=== PATIENT | male | born 1985 | race American Indian/Alaskan Native ===

== ENCOUNTER 2016-12-05 08:02 | Emergency (ER) | payer SELFPAY ==
[2016-12-05 08:18] VITALS: BP 123/79
--- NOTE | 2016-12-05 08:19 | EDM.PDOC ---
ED HISTORY OF PRESENT ILLNESS - General Chief Complaint: Respiratory Problem Stated Complaint: TROUBLE BREATHING Time Seen by Provider: 12/05/16 08:18 Source of Information: Reports: Patient, RN, RN notes reviewed History Limitations: Reports: No limitations - History of Present Illness INITIAL COMMENTS - FREE TEXT/NARRATIVE: C/O runny nose, sore throat, sinus congestion and cough x3 to 4 days. Cough began as dry and hacking, but now has some light green sputum that is thick. Reports feeling feverish the first day, but not now. No known sick contacts. Timing/Duration: Reports: Constant Improves with: Reports: None Worsens with: Reports: None Context, General: Denies: Activity, Exercise, Lifting, Sick contact, Trauma Associated Symptoms (General): Reports: no other symptoms - Related Data Allergies/ADRs: Allergies Allergy/AdvReac Type Severity Reaction Status Date / Time venom-honey bee Allergy Hives Verified 12/05/16 08:14 [bee venom (honey bee)] Home Meds: Home Meds . [No Known Home Meds] 05/11/14 [History] Past Medical History - Past Health History Medical/Surgical History: Denies Medical/Surgical History Social & Family History - Family History Family Medical History: Noncontributory - Tobacco Use Smoking Status *Q: Current Every Day Smoker Years of Tobacco use: 8 - Alcohol Use Days Per Week of Alcohol Use: 0 - Recreational Drug Use Recreational Drug Use: No - Living Situation & Occupation Living situation: Reports: with family ED ROS GENERAL - Review of Systems Review Of Systems: ROS reveals no pertinent complaints other than HPI. ED EXAM, GENERAL - Physical Exam Exam: See Below Exam Limited By: No limitations General Appearance: alert, WD/WN, no apparent distress Eye Exam: bilateral eye: normal inspection Ears: normal external exam, normal canal, hearing grossly normal, normal TMs Nose: no blood, nasal drainage (clear and yellow) Throat/Mouth: Normal lips, Normal teeth, Normal gums, Normal voice, No airway compromise, Other (pharyngeal erythema with postnasal drip) Head: atraumatic, normocephalic Neck: normal inspection, supple, non-tender, full range of motion. No: lymphadenopathy (L), lymphadenopathy (R) Respiratory/Chest: no respiratory distress, lungs clear, no accessory muscle use , other (occ. cough). No: rales, rhonchi, wheezing Cardiovascular: regular rate, rhythm GI/Abdominal: normal bowel sounds, soft, non tender, no distention Neurological: alert, oriented, CN II-XII intact, normal cognition, normal gait, no motor/sensory deficits Psychiatric: normal affect, normal mood Skin Exam: Warm, Dry, Intact, Normal color, No rash Course - Vital Signs Last Recorded V/S: Last Vital Signs Temp 36.3 C 12/05/16 08:15 Pulse 80 12/05/16 08:15 Resp 18 12/05/16 08:15 BP 123/79 12/05/16 08:15 Pulse Ox 100 12/05/16 08:15 - Orders/Labs/Meds Meds: Medications Discontinued Medications Generic Name Dose Route Start Last Admin Trade Name Manolo PRN Reason Stop Dose Admin Azithromycin 500 mg 12/05/16 08:38 Zithromax PO 12/05/16 08:39 ONETIME ONE Loratadine 10 mg 12/05/16 08:39 Claritin PO 12/05/16 08:40 ONETIME ONE Departure - Departure Time of Disposition: 08:42 Disposition: Home, Self-Care 01 Condition: good Clinical Impression: Upper respiratory infection with cough and congestion Pharyngitis Qualifiers: Pharyngitis/tonsillitis etiology: unspecified etiology Qualified Code(s): J02.9 - Acute pharyngitis, unspecified Instructions: Upper Respiratory Infection, Adult, [id number], Pharyngitis, [id number] Forms: ED Department Discharge Additional Instructions: Rx: Zithromax 250mg Rx: Loratadine D-24HR Frequent saltwater gargles until improved. Follow up in clinic if not improving in 2 to 3 days.
[2016-12-05] MEDS ORDERED: Azithromycin 250 MG Tab PO ONE (08:38)
[2016-12-05] MEDS ORDERED: Loratadine 10 MG Tab PO ONE (08:39)
== END 2016-12-05 08:53 | disposition home or self-care (01) ==
LOC: DL.ED 08:02
DX: J06.9 Acute upper respiratory infection, unspecified (principal); F17.210 Nicotine dependence, cigarettes, uncomplicated; Z91.030 Bee allergy status
CPT/HCPCS: 99284; A9270; 99283

== ENCOUNTER 2017-05-31 17:02 | Observation (INO) | payer OTHER ==
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
[~2017-05-31 17:02] MED LIST: Diphtheria,Pertussis(Acell),Tetanus Vaccine 0.5 ML SDV IM ONE; Sodium Chloride 0.9% 1,000 ML IV ONE
[2017-05-31 17:06] LABS: CHLORIDE,CL 101 mmol/L (101-111); SODIUM,NA 137 mmol/L (135-145)
[2017-05-31] MEDS ORDERED: Potassium Chloride 10 MEQ Tab.ER PO ONE (17:08)
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
[2017-05-31] MEDS: Morphine 2 MG/ML Syringe IVPUSH PRN ×3 (18:57→23:21)
[2017-05-31] MEDS: Sodium Chloride 0.9% 1,000 ML IV SCH (19:05)
[2017-05-31] MEDS: Acetaminophen/HYDROcodone 325-10 MG Tab PO PRN (19:36)
[2017-05-31] MEDS: Ondansetron 4 MG/2 ML SDV IVPUSH PRN (21:01)
[2017-05-31] MEDS: Acetaminophen 325 MG Tab PO PRN (22:12)
[2017-06-01] MEDS: Acetaminophen/HYDROcodone 325-10 MG Tab PO PRN ×2 (00:04→03:55)
[2017-06-01] MEDS: Morphine 2 MG/ML Syringe IVPUSH PRN (01:26)
[2017-06-01] MEDS: Acetaminophen 325 MG Tab PO PRN (02:05)
[2017-06-01] MEDS: Sodium Chloride 0.9% 1,000 ML IV SCH (03:02)
[2017-06-01] MEDS: Ondansetron 4 MG/2 ML SDV IVPUSH PRN (03:35)
[2017-06-01 07:03] LABS: CHLORIDE,CL 107 mmol/L (101-111); SODIUM,NA 135 mmol/L (135-145)
[2017-06-01 07:41] VITALS: BP 111/56
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
== END 2017-06-01 10:15 | disposition home or self-care (01) ==
LOC: DL.ED 17:02 → DL.MS 18:01 → UNDOADMOB 18:06 → DL.MS 18:06
PROVIDERS: ADMIT Family Medicine; ATTEND Family Medicine
DX: S02.2XXA Fracture of nasal bones, initial encounter for closed fracture (principal); S09.90XA Unspecified injury of head, initial encounter; E83.42 Hypomagnesemia; V49.9XXA Car occupant (driver) (passenger) injured in unspecified traffic accident, initial encounter; Y92.9 Unspecified place or not applicable; Z79.899 Other long term (current) drug therapy; Z91.030 Bee allergy status; F17.210 Nicotine dependence, cigarettes, uncomplicated
CPT/HCPCS: 36415; 70450; 70486; 72125; 73562; 73590; 80053; 80305; 83735; 85025; 90471; 90715; 99285; A9270; G0480; J2270; J2405; J7030; 96360; 96361; 96374; 96375; 96376; G0378

== ENCOUNTER 2018-05-04 09:44 | Emergency (ER) | payer OTHER ==
--- NOTE | 2018-05-04 09:45 | EDM.PDOC ---
ED HPI GENERAL MEDICAL PROBLEM - General Chief Complaint: Chest Pain Stated Complaint: IN BY AMBULACNE CHEST PAIN Time Seen by Provider: 05/04/18 09:44 Source of Information: Reports: Patient, EMS, Old Records, RN, RN Notes Reviewed History Limitations: Reports: No Limitations - History of Present Illness INITIAL COMMENTS - FREE TEXT/NARRATIVE: Pt arrives to ER from home by ambulance with c/o chest pain x1 week. Pt describes the pain as fairly constant but mostly present with movement and deep breathing. He denies cough, fever, chills, abdominal pain, radiating pain, wheezing, palpitations, syncope, leg/calf tenderness or swelling, or edema. He admits to feeling lightheaded briefly yesterday, then again early this morning. Also admits to feeling anxious at times, and slightly short of breath with exertion. Duration: Week(s): (1) Location: Reports: Chest Quality: Reports: Ache, Sharp Severity: Moderate Improves with: Reports: None Worsens with: Reports: Breathing, Movement Associated Symptoms: Reports: No Other Symptoms Treatments CLAIMS SORTER: Reports: Acetaminophen, Other Medication(s) (oxycodone) Right Mid-Anterior Chest Pain Score (Numeric/FACES): 4 Right Upper Chest Pain Score (Numeric/FACES): 5 - Related Data Allergies Allergy/AdvReac Type Severity Reaction Status Date / Time venom-honey bee Allergy Hives Verified 05/31/17 20:41 [bee venom (honey bee)] Home Meds: Home Meds . [No Known Home Meds] 05/04/18 [History] Past Medical History - Past Health History Medical/Surgical History: Denies Medical/Surgical History Musculoskeletal History: Reports: Fracture Other Musculoskeletal History: broke left shoulder Neurological History: Reports: Concussion, Migraines Psychiatric History: Reports: Anxiety, Depression Other Psychiatric History: seasonal depression - Infectious Disease History Infectious Disease History: Reports: None - Past Surgical History Male Surgical History: Reports: Other (See Below) Social & Family History - Family History Family Medical History: Noncontributory - Tobacco Use Smoking Status *Q: Current Every Day Smoker Tobacco Use Within Last Twelve Months: Cigarettes - Caffeine Use Caffeine Use: Reports: None - Living Situation & Occupation Living situation: Reports: with Family ED ROS GENERAL - Review of Systems Review Of Systems: ROS reveals no pertinent complaints other than HPI. ED EXAM, GENERAL - Physical Exam Exam: See Below Exam Limited By: No Limitations General Appearance: Alert, WD/WN, No Apparent Distress, Anxious Eye Exam: Bilateral Eye: Normal Inspection Nose: Normal Inspection, Normal Mucosa, No Blood Throat/Mouth: Normal Inspection, Normal Lips, Normal Teeth, Normal Gums, Normal Oropharynx, Normal Voice, No Airway Compromise Head: Atraumatic, Normocephalic Neck: Normal Inspection, Supple, Non-Tender, Full Range of Motion. No: Lymphadenopathy (L), Lymphadenopathy (R) Respiratory/Chest: No Respiratory Distress, Lungs Clear, Normal Breath Sounds, No Accessory Muscle Use, Other (Anterior chest wall tender to firm palpation) Cardiovascular: Normal Peripheral Pulses, Regular Rate, Rhythm, No Edema, No Gallop, No JVD, No Murmur, No Rub GI/Abdominal: Normal Bowel Sounds, Soft, Non-Tender, No Organomegaly, No Distention, No Abnormal Bruit (Male) Exam: Deferred Rectal (Males) Exam: Deferred Back Exam: Normal Inspection, Full Range of Motion, NT Extremities: Normal Inspection, Normal Range of Motion, Non-Tender, Normal Capillary Refill, No Pedal Edema Neurological: Alert, Oriented, CN II-XII Intact, Normal Cognition, Normal Gait, No Motor/Sensory Deficits Psychiatric: Normal Affect, Anxious Skin Exam: Warm, Dry, Intact, Normal Color, No Rash EKG INTERPRETATION EKG Date: 05/04/18 Time: 09:45 Rhythm: Other (SR) Rate (Beats/Min): 67 [place]: RAD-Right [place] Deviation P-Wave: Present QRS: Normal ST-T: Elevated (due to probable early repol. No acute ischemic changes.) QT: Normal Comparison: NA - No Prior EKG Course - Vital Signs Last Recorded V/S: Last Vital Signs Temp 37.3 C 05/04/18 10:12 Pulse 71 05/04/18 10:12 Resp 16 05/04/18 10:12 BP 126/89 05/04/18 10:12 Pulse Ox 98 05/04/18 10:12 - Orders/Labs/Meds Orders: Active Orders 24 hr Category Date Time Status EKG 12 Lead [EKG Documentation Completion] [RC] STAT Care 05/04/18 09:45 Active EKG 12 Lead [EKG Documentation Completion] [RC] STAT Care 05/04/18 09:49 Active Peripheral IV Care [RC] . DIRECTED Care 05/04/18 09:49 Active Chest 1V Frontal [CR] Stat Exams 05/04/18 09:49 Taken UA W/MICROSCOPIC [URIN] Stat Lab 05/04/18 10:10 Results Sodium Chloride 0.9% [Saline Flush] Med 05/04/18 09:48 Active 10 ml FLUSH ASDIRECTED PRN Peripheral IV Insertion Adult [OM.PC] Stat Oth 05/04/18 09:49 Ordered Medication Orders Sodium Chloride (Saline Flush) 10 ml FLUSH ASDIRECTED PRN PRN Reason: Keep Vein Open Labs: Laboratory Tests 05/04/18 05/04/18 05/04/18 Range/Units 09:58 09:58 09:58 WBC 6.9 (5.0-10.0) 10^3/uL RBC 5.39 (4.6-6.2) 10^6/uL Hgb 16.9 (14.0-18.0) g/dL Hct 48.0 (40.0-54.0) % MCV 89.1 (80-100) fL MCH 31.4 (27.0-34.0) pg MCHC 35.2 H (33.0-35.0) g/dL Plt Count 198 (150-450) 10^3/uL Neut % (Auto) 66.9 (42.2-75.2) % Lymph % (Auto) 23.8 (20.5-50.1) % [place] % (Auto) 7.9 (2-8) % Eos % (Auto) 1.0 (1.0-3.0) % Baso % (Auto) 0.4 (0.0-1.0) % D-Dimer, Quantitative < 100 (0-400) ng/mL Sodium 136 (135-145) mmol/L Potassium 3.5 L (3.6-5.0) mmol/L Chloride 103 (101-111) mmol/L Carbon Dioxide 24.0 (21.0-31.0) mmol/L Anion Gap 12.5 BUN 10 (7-18) mg/dL Creatinine 0.8 (0.6-1.3) mg/dL Est Cr Clr Drug Dosing 151.20 mL/min Estimated GFR (MDRD) > 60 BUN/Creatinine Ratio 12.50 Glucose 96 (74-105) mg/dL Calcium 8.9 (8.4-10.2) mg/dl Total Bilirubin 1.0 (0.2-1.0) mg/dL AST 23 (10-42) IU/L ALT 26 (10-60) IU/L Alkaline Phosphatase 41 L (42-121) IU/L Troponin I < 0.02 (0.00-0.02) ng/ml Total Protein 7.4 (6.7-8.2) g/dl Albumin 4.6 (3.2-5.5) g/dl Globulin 2.8 Albumin/Globulin Ratio 1.64 Amylase 47 (28-100) U/L Lipase 18 L (22-51) U/L Urine Color (YELLOW) Urine Appearance (CLEAR) Urine pH (5.0-9.0) Ur Specific [place] (1.005-1.030) Urine Protein (NEGATIVE) Urine Glucose (UA) (NEGATIVE) Urine Ketones (NEGATIVE) Urine Occult Blood (NEGATIVE) Urine Nitrite (NEGATIVE) Urine Bilirubin (NEGATIVE) Urine Urobilinogen (0.2-1.0) mg/dL Ur Leukocyte Esterase (NEGATIVE) Urine Opiates Screen (NEGATIVE) Ur Oxycodone Screen (NEGATIVE) Urine Methadone Screen (NEGATIVE) Ur Barbiturates Screen (NEGATIVE) U Tricyclic Antidepress (NEGATIVE) Ur Phencyclidine Scrn (NEGATIVE) Ur Amphetamine Screen (NEGATIVE) U Methamphetamines Scrn (NEGATIVE) Urine MDMA Screen (NEGATIVE) U Benzodiazepines Scrn (NEGATIVE) Urine Cocaine Screen (NEGATIVE) U Marijuana (THC) Screen (NEGATIVE) 05/04/18 05/04/18 Range/Units 10:10 10:10 WBC (5.0-10.0) 10^3/uL RBC (4.6-6.2) 10^6/uL Hgb (14.0-18.0) g/dL Hct (40.0-54.0) % MCV (80-100) fL MCH (27.0-34.0) pg MCHC (33.0-35.0) g/dL Plt Count (150-450) 10^3/uL Neut % (Auto) (42.2-75.2) % Lymph % (Auto) (20.5-50.1) % [place] % (Auto) (2-8) % Eos % (Auto) (1.0-3.0) % Baso % (Auto) (0.0-1.0) % D-Dimer, Quantitative (0-400) ng/mL Sodium (135-145) mmol/L Potassium (3.6-5.0) mmol/L Chloride (101-111) mmol/L Carbon Dioxide (21.0-31.0) mmol/L Anion Gap BUN (7-18) mg/dL Creatinine (0.6-1.3) mg/dL Est Cr Clr Drug Dosing mL/min Estimated GFR (MDRD) BUN/Creatinine Ratio Glucose (74-105) mg/dL Calcium (8.4-10.2) mg/dl Total Bilirubin (0.2-1.0) mg/dL AST (10-42) IU/L ALT (10-60) IU/L Alkaline Phosphatase (42-121) IU/L Troponin I (0.00-0.02) ng/ml Total Protein (6.7-8.2) g/dl Albumin (3.2-5.5) g/dl Globulin Albumin/Globulin Ratio Amylase (28-100) U/L Lipase (22-51) U/L Urine Color Yellow (YELLOW) Urine Appearance Clear (CLEAR) Urine pH 7.0 (5.0-9.0) Ur Specific [place] 1.020 (1.005-1.030) Urine Protein Negative (NEGATIVE) Urine Glucose (UA) Negative (NEGATIVE) Urine Ketones Negative (NEGATIVE) Urine Occult Blood Trace-intact H (NEGATIVE) Urine Nitrite Negative (NEGATIVE) Urine Bilirubin Negative (NEGATIVE) Urine Urobilinogen 0.2 (0.2-1.0) mg/dL Ur Leukocyte Esterase Trace H (NEGATIVE) Urine Opiates Screen Negative (NEGATIVE) Ur Oxycodone Screen Positive H (NEGATIVE) Urine Methadone Screen Negative (NEGATIVE) Ur Barbiturates Screen Negative (NEGATIVE) U Tricyclic Antidepress Negative (NEGATIVE) Ur Phencyclidine Scrn Negative (NEGATIVE) Ur Amphetamine Screen Negative (NEGATIVE) U Methamphetamines Scrn Negative (NEGATIVE) Urine MDMA Screen Negative (NEGATIVE) U Benzodiazepines Scrn Negative (NEGATIVE) Urine Cocaine Screen Negative (NEGATIVE) U Marijuana (THC) Screen Negative (NEGATIVE) Meds: Medications Generic Name Dose Route Start Last Admin Trade Name Freq PRN Reason Stop Dose Admin Sodium Chloride 10 ml 05/04/18 09:48 Saline Flush FLUSH ASDIRECTED PRN Keep Vein Open - Radiology Interpretation Free Text/Narrative:: CXR: no acute process, see Rad. report. - Re-Assessments/Exams Free Text/Narrative Re-Assessment/Exam: 05/04/18 10:39 No findings to suggest ACS/AMI or cardiac source of pt's chest pain. D-dimer negative, therefore low likelihood of PE. No cough, wheezing, or findings to suggest pneumonia or any infection process. Departure - Departure Time of Disposition: 10:40 Disposition: Home, Self-Care 01 Condition: Good Clinical Impression: Non-cardiac chest pain, Costochondritis Instructions: Costochondritis, [id number], Nonspecific Chest Pain, Easy-to- Read Forms: ED Department Discharge Additional Instructions: Rest, take slow deep breathes frequently throughout the day. May use heating pad or Icy-Hot as needed. Quit smoking. Follow up in clinic if not improving in 3 to 5 days. - My Orders Last 24 Hours: My Active Orders 05/04/18 09:45 EKG 12 Lead [EKG Documentation Completion] [RC] STAT 05/04/18 09:48 Sodium Chloride 0.9% [Saline Flush] 10 ml FLUSH ASDIRECTED PRN 05/04/18 09:49 EKG 12 Lead [EKG Documentation Completion] [RC] STAT Peripheral IV Care [RC] . DIRECTED Chest 1V Frontal [CR] Stat Peripheral IV Insertion Adult [OM.PC] Stat 05/04/18 10:10 UA W/MICROSCOPIC [URIN] Stat - Assessment/Plan Last 24 Hours: My Active Orders 05/04/18 09:45 EKG 12 Lead [EKG Documentation Completion] [RC] STAT 05/04/18 09:48 Sodium Chloride 0.9% [Saline Flush] 10 ml FLUSH ASDIRECTED PRN 05/04/18 09:49 EKG 12 Lead [EKG Documentation Completion] [RC] STAT Peripheral IV Care [RC] . DIRECTED Chest 1V Frontal [CR] Stat Peripheral IV Insertion Adult [OM.PC] Stat 05/04/18 10:10 UA W/MICROSCOPIC [URIN] Stat
[2018-05-04] MEDS ORDERED: Sodium Chloride 0.9% 10 ML Syringe FLUSH PRN (09:48)
[2018-05-04 10:27] LABS: ANION GAP 12.5; CHLORIDE,CL 103 mmol/L (101-111); SODIUM,NA 136 mmol/L (135-145)
[2018-05-04 10:45] VITALS: BP 126/79
--- NOTE | 2018-05-04 11:02 | CR ---
Clinical history: 33-year-old male with chest pain. Interpretation: No acute cardiopulmonary abnormality (external library monitor leads). Normal cardiac silhouette without cephalization of flow, signs of alveolar edema or dependent pleural effusion. No lung mass, hilar lymphadenopathy or focal lobar pneumonia. No atelectasis/collapse. No pneumothorax. No free subdiaphragmatic air. CONCLUSION: Negative exam.
== END 2018-05-04 10:55 | disposition home or self-care (01) ==
LOC: DL.ED 09:44
DX: M94.0 Chondrocostal junction syndrome [Tietze] (principal); F17.210 Nicotine dependence, cigarettes, uncomplicated; Z91.030 Bee allergy status
CPT/HCPCS: 36415; 71045; 80053; 80305-QW; 81001; 82150; 83690; 84484; 85025; 85379; 93005; 99285

== ENCOUNTER 2019-04-19 06:28 | Day surgery (SDC) | payer MEDICAID, OTHER ==
[~2019-04-19 06:28] MED LIST changes: +Dextrose 5%-0.45% NaCl 1,000 ML IV SCH; -Diphtheria,Pertussis(Acell),Tetanus Vaccine 0.5 ML SDV IM ONE; +Midazolam 1 MG/ML 2 ML SDV ONE; -Sodium Chloride 0.9% 1,000 ML IV ONE; +Sodium Chloride 0.9% 10 ML Syringe FLUSH PRN; +fentaNYL 100 MCG/2 ML SDV ONE
[2019-04-19] MEDS ORDERED: fentaNYL 100 MCG/2 ML SDV IV ONE ×5 (06:29→07:20)
[2019-04-19] MEDS ORDERED: Midazolam 1 MG/ML 2 ML SDV IV ONE ×7 (06:29→07:16)
[2019-04-19 08:18] VITALS: BP 121/71; PULSE 72
--- NOTE | 2019-04-19 13:38 | OR ---
DATE: 04/19/2019 PROCEDURE: Total colonoscopy. INSTRUMENT USED: PCF-H190DL Olympus video colonoscope. PREMEDICATIONS: Fentanyl 175 mcg intravenous, Versed 4 mg intravenous. The procedure was done under pulse oximetry, BP recording, and public health engineer. INDICATION: The patient with rectal bleeding, unexplained. Colonoscopic examination is done for detection of any polypoid lesions and removal, endoscopic hemostasis therapy if needed. DESCRIPTION OF PROCEDURE: Initial rectal exam was unremarkable. Rigid anoscopy was normal. The colonoscope was passed with ease up to the ileocecal area. Photographs were taken of the normal-appearing cecum, identified by double bulged ileocecal folds. No bleeding was noted from any of the visualized areas at the commencement of the examination. No stricture. No vascular ectasia. No large isolated ulcerations seen. No evidence of diffuse inflammatory bowel disease in the form of friability, contact bleeding, or ulcerations. No polyp or tumor mass identified. Probing the proximal sides of folds and flexures using adequate distention and clearing up the stool material, withdrawal of the scope was made. Cecum to rectum time over 6 minutes. No bleeding was noted from any of the visualized areas at the completion of examination. IMPRESSION: Normal study. The patient tolerated the procedure well. [facility] /[id number]
== END 2019-04-19 09:31 | disposition home or self-care (01) ==
LOC: DL.ENDO 06:28
PROVIDERS: ATTEND Internal Medicine Gastroenterology
DX: K62.5 Hemorrhage of anus and rectum (principal)
CPT/HCPCS: 45378; J2250; J3010; J7042; G0121

== ENCOUNTER 2019-09-20 00:07 | Emergency (ER) | payer MEDICAID, OTHER ==
[2019-09-20 00:15] VITALS: BP 139/83; PULSE 79
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
[2019-09-20] MEDS ORDERED: Amoxicillin 500 MG Cap PO ONE (00:27)
[2019-09-20] MEDS ORDERED: Acetaminophen/oxyCODONE 325-5 MG Tab PO ONE (00:28)
== END 2019-09-20 00:40 | disposition home or self-care (01) ==
LOC: DL.ED 00:07
DX: K04.7 Periapical abscess without sinus (principal); F17.210 Nicotine dependence, cigarettes, uncomplicated; Z91.030 Bee allergy status
CPT/HCPCS: 99283; A9270

== ENCOUNTER 2020-11-08 17:51 | Emergency (ER) | payer MEDICAID, OTHER ==
[2020-11-08] MEDS ORDERED: Sodium Chloride 0.9% 10 ML Syringe FLUSH PRN (18:06)
[2020-11-08 18:29] VITALS: BP 122/73; PULSE 71
[2020-11-08 18:41] LABS: PTT,PARTIAL THROMBOPLSTIN TIME 26.4 SEC (22.0-34.0)
[2020-11-08 18:43] LABS: CHLORIDE,CL 103 mmol/L (98-107); SODIUM,NA 141 mmol/L (136-145)
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
== END 2020-11-08 19:42 | disposition home or self-care (01) ==
LOC: DL.ED 17:51
DX: R07.9 Chest pain, unspecified (principal); Z91.030 Bee allergy status; Z72.0 Tobacco use
CPT/HCPCS: 36415; 80053; 80307; 83690; 84484; 85025; 85379; 85610; 85730; 86140; 93005; 93010; 99284; 99285-25